=== PATIENT | male | born 1955 | race Native Hawaiian/Other Pacific Islander ===

== ENCOUNTER 2023-01-20 09:59 | Outpatient (CLI) | payer OTHER ==
[2023-01-20 10:45] LABS: PLATELET COUNT 131 K/uL (142-355)
[2023-01-20 11:12] LABS: POTASSIUM 4.5 mmol/L (3.6-5.2)
== END 2023-01-20 18:56 | disposition home or self-care (01) ==
LOC: LABW 09:59
PROVIDERS: ATTEND Internal Medicine
DX: E87.5 Hyperkalemia (principal); E03.8 Other specified hypothyroidism; N18.2 Chronic kidney disease, stage 2 (mild); E11.9 Type 2 diabetes mellitus without complications
CPT/HCPCS: 36415; 80053; 81002; 82306; 82330; 82550; 82570; 83036; 83735; 83970; 84100; 84133; 84156; 84300; 84439; 84443; 84550; 85027